=== PATIENT | female | born 1970 | race Caucasian/White ===

== ENCOUNTER 2017-05-26 05:38 | Inpatient (IN) | payer OTHER ==
[~2017-05-26] VITALS: Ht 152.4 cm; Wt 106.8 kg
[~2017-05-26 05:38] MED LIST: AMITIZA8 MICROGRA PO; APRESOLINE50 MG PO; BREO ELLIPTA I1 EACH IH; CELEXA40 MG PO; DEXILANT60 MG PO; LASIX40 MG PO; PREMARIN1.25 MG PO; PRINIVIL10 MG PO; PROAIR RESPICL90 MCG IH; PROTONIX40 MG PO; TRAMADOL HCL50 MG PO; ULTRAM50 MG PO
[2017-05-26 06:37] VITALS: BP 110/67
[2017-05-26 13:32] VITALS: BP 114/75
[2017-05-26 19:04] LABS: GFR ESTIMATE (CALCULATED) > 59 mL/min/
[2017-05-26 19:33] VITALS: BP 128/80
[2017-05-26 23:38] VITALS: BP 120/76
[2017-05-27 03:52] VITALS: BP 115/70
[2017-05-27 08:17] VITALS: BP 138/81
[2017-05-27 11:46] VITALS: BP 130/69
[2017-05-27 11:47] LABS: HEMATOCRIT 40.9 % (36.0-46.0); HEMOGLOBIN 13.9 G/DL (11.9-15.5); MCH 29.8 PG (29.0-34.0); MCV 87.8 FL (83-99); PLATELET COUNT 315 K/uL (156-360); RBC DIS.WIDTH-CV 14.9 % (11.8-14.6); RBC DIS.WIDTH-SD 47.6 % (39-53); RED BLOOD COUNT 4.66 M/uL (3.80-5.20); WHITE BLOOD COUNT 12.9 K/uL (4.1-10.2)
[2017-05-27 11:57] LABS: CHLORIDE 106 mEq/L (99-109); POTASSIUM 4.7 mEq/L (3.7-5.4); SODIUM 139 mEq/L (136-147)
[2017-05-27 11:59] LABS: GLUCOSE 102 mg/dL (70-99); TOTAL PROTEIN 6.3 g/dL (6.4-8.3)
[2017-05-27 12:01] LABS: TOTAL BILIRUBIN 0.3 mg/dL (0.0-1.0)
[2017-05-27 12:02] LABS: ALKALINE PHOSPHATASE 135 IU/L (3-129)
[2017-05-27 12:03] LABS: CREATININE 0.9 mg/dL (0.6-1.3); GFR ESTIMATE (CALCULATED) > 59 mL/min/
[2017-05-27 12:04] LABS: AST (GOT) 26 IU/L (2-34); UREA NITROGEN (BUN) 19 mg/dL (9-23)
[2017-05-27 12:05] LABS: ALT (GPT) 34 IU/L (3-49)
[2017-05-27 12:06] LABS: CREATINE KINASE 204 IU/L (1-294)
[2017-05-27 14:21] VITALS: BP 136/89
[2017-05-27 16:51] VITALS: BP 127/77
[2017-05-27 20:34] VITALS: BP 130/76
[2017-05-28 00:12] VITALS: BP 131/80
[2017-05-28 03:52] VITALS: BP 139/71
[2017-05-28 08:13] VITALS: BP 155/78
[2017-05-28 12:24] VITALS: BP 137/78
[2017-05-28 15:37] VITALS: BP 142/88
[2017-05-28 16:53] VITALS: BP 135/84
[2017-05-29 00:19] VITALS: BP 119/76
[2017-05-29 05:42] LABS: BASOPHIL (%) 0.2 % (0-1); EOSINOPHIL (%) 0 % (0-5); HEMATOCRIT 39.3 % (36.0-46.0); HEMOGLOBIN 12.6 G/DL (11.9-15.5); IMMATURE GRANULOCYTE (%) 1.4 % (0.0-0.7); LYMPHOCYTE COUNT 1.2 K/uL (1.0-2.8); MCH 28.6 PG (29.0-34.0); MCHC 32.1 G/DL (30.0-36.0); MCV 89.3 FL (83-99); MONOCYTE (%) 3.9 % (3-12); MONOCYTE COUNT 0.5 K/uL (0-0.8); NEUTROPHIL (%) 84.5 % (45-76); NEUTROPHIL COUNT 10.3 K/uL (1.8-6.4); PLATELET COUNT 288 K/uL (156-360); RBC DIS.WIDTH-CV 15.6 % (11.8-14.6); RBC DIS.WIDTH-SD 51.5 % (39-53); WHITE BLOOD COUNT 12.2 K/uL (4.1-10.2)
[2017-05-29 07:03] LABS: ALBUMIN 3.3 G/DL (3.2-4.8); ALKALINE PHOSPHATASE 112 IU/L (3-129); ALT (GPT) 22 IU/L (3-49); AST (GOT) 23 IU/L (2-34); CHLORIDE 103 MEQ/L (99-109); GFR ESTIMATE (CALCULATED) > 59 mL/min/; GLUCOSE 106 mg/dL (70-99); POTASSIUM 4.2 MEQ/L (3.7-5.4); SODIUM 138 MEQ/L (136-147); TOTAL BILIRUBIN 0.2 MG/DL (0.0-1.0); TOTAL PROTEIN 5.9 G/DL (6.4-8.3); UREA NITROGEN (BUN) 20 mg/dL (9-23)
[2017-05-29] MEDS ORDERED: ENDOCET 5-3251 EACH PO (08:08)
[2017-05-29] MEDS ORDERED: CYCLOBENZAPRINE10 MG PO (08:08)
[2017-05-29] MEDS ORDERED: LORAZEPAM1 MG PO (08:08)
[2017-05-29] MEDS ORDERED: BACTRIM,SEPT1 TABLET PO (08:08)
[2017-05-29] MEDS ORDERED: GABAPENTIN100 MG PO (08:08)
[2017-05-29 08:12] VITALS: BP 159/76
[2017-05-29 11:17] VITALS: BP 139/769
== END 2017-05-29 13:09 | disposition home health service (06) | DRG 519 ==
LOC: SDC 05:38 → 2SOUTH 12:27 → 2EASTP 12:27 → ENRESERV 12:43 → 2EASTP 13:17 → SDC 16:18 → 2EASTP 05-27 08:44 → 3EAST 05-27 08:44 → ENRESERV 05-27 09:05 → 3EAST 05-27 13:38
PROVIDERS: Hospitalist; Neurological Surgery
DX: M71.38 Other bursal cyst, other site (principal); M48.061 Spinal stenosis, lumbar region without neurogenic claudication; M54.16 Radiculopathy, lumbar region; F41.9 Anxiety disorder, unspecified; I10 Essential (primary) hypertension; F32.9 Major depressive disorder, single episode, unspecified; R25.1 Tremor, unspecified; E66.9 Obesity, unspecified; Z68.42 Body mass index [BMI] 45.0-49.9, adult
CPT/HCPCS: 72020; 72131; 76000; 80053; 81003; 82550; 82565; 82948; 85025; 85027; 94010; 94640; 94640 76; 99202; G0378; J0131; J1100; J1170; J1200; J1885; J2060; J2250; J2405; J3480; J7120; Q0177; S0020

== ENCOUNTER 2017-06-18 15:12 | Inpatient (IN) | payer OTHER ==
[~2017-06-18] VITALS: Ht 152.4 cm; Wt 77.1 kg
[~2017-06-18 15:12] MED LIST changes: +BACTRIM,SEPT1 TABLET PO; +CYCLOBENZAPRINE10 MG PO; +ENDOCET 5-3251 EACH PO; +GABAPENTIN100 MG PO; +LORAZEPAM1 MG PO
[2017-06-18 15:54] VITALS: BP 101/61
[2017-06-18 16:12] LABS: HEMATOCRIT 39.8 % (36.0-46.0); HEMOGLOBIN 12.8 G/DL (11.9-15.5); MCH 28.6 PG (29.0-34.0); MCHC 32.2 G/DL (30.0-36.0); MCV 88.8 FL (83-99); PLATELET COUNT 315 K/uL (156-360); RBC DIS.WIDTH-CV 15.4 % (11.8-14.6); RBC DIS.WIDTH-SD 50.5 % (39-53); RED BLOOD COUNT 4.48 M/uL (3.80-5.20); WHITE BLOOD COUNT 7.2 K/uL (4.1-10.2)
[2017-06-18 16:37] LABS: CHLORIDE 105 MEQ/L (99-109); CREATININE 0.7 MG/DL (0.6-1.3); GFR ESTIMATE (CALCULATED) > 59 mL/min/; GLUCOSE 74 mg/dL (70-99); POTASSIUM 4.7 MEQ/L (3.7-5.4); SODIUM 138 MEQ/L (136-147); UREA NITROGEN (BUN) 15 mg/dL (9-23)
[2017-06-18 21:19] VITALS: BP 135/77
[2017-06-18 23:21] VITALS: BP 136/65
[2017-06-19 04:08] VITALS: BP 120/66
[2017-06-19 08:00] VITALS: BP 116/69
[2017-06-19 12:00] VITALS: BP 123/75
[2017-06-19 15:19] VITALS: BP 111/60
== END 2017-06-19 18:00 | disposition home health service (06) | DRG 921 ==
LOC: SDC 15:12 → 3EAST 20:31 → 2SOUTH 20:31 → ENRESERV 20:32 → 3EAST 21:18
PROVIDERS: Neurological Surgery
PROC: 0J970ZX Drainage of Back Subcutaneous Tissue and Fascia, Open Approach, Diagnostic (ICD-10-PCS; principal; 2017-06-18)
DX: L76.34 Postprocedural seroma of skin and subcutaneous tissue following other procedure (principal); Y83.8 Other surgical procedures as the cause of abnormal reaction of the patient, or of later complication, without mention of misadventure at the time of the procedure; Z98.1 Arthrodesis status; F41.9 Anxiety disorder, unspecified; I10 Essential (primary) hypertension; M62.81 Muscle weakness (generalized); J45.909 Unspecified asthma, uncomplicated; M19.90 Unspecified osteoarthritis, unspecified site; F32.9 Major depressive disorder, single episode, unspecified; E66.9 Obesity, unspecified; Z68.33 Body mass index [BMI] 33.0-33.9, adult
CPT/HCPCS: 80048; 85027; 87070; 87075; 87205; 94640 76; 99202; J0330; J1885; J2405; J3010; J3370